=== PATIENT | female | born 1995 | race African-American/Black ===

== ENCOUNTER 2023-12-24 04:56 | Day surgery (SDC) | payer OTHER ==
[2023-12-21 08:40] VITALS: BMI 31.7
[2023-12-24] MEDS ORDERED: MIDAZOLAM HCL 2 MG/2 ML SINGLE DOSE VIAL ONE (13:19)
[2023-12-24] MEDS: LIDOCAINE HCL 1% PRESERVATIVE FREE - 30ML VIAL IJ ONE (13:27)
[2023-12-24] MEDS: BUPIVACAINE HCL/PF 0.25% (2.5MG/ML) 10 ML VIAL IJ ONE (13:27)
[2023-12-24] MEDS: DEXAMETHASONE SOD PHOSPHATE 10 MG/1 ML VIAL IVPUSH ONE (13:27)
[2023-12-24] MEDS: IOHEXOL 180 MG/1 ML ML IJ ONE (13:27)
[2023-12-24 14:34] VITALS: RESP 20
[2023-12-24 15:11] VITALS: BP 126/78; PULSE 70; TEMP 98
== END 2023-12-24 14:45 | disposition home or self-care (01) ==
LOC: JASU-SURG 04:56
PROVIDERS: ATTEND Physical Medicine & Rehabilitation
PROC: 3E0R3BZ Introduction of Anesthetic Agent into Spinal Canal, Percutaneous Approach (ICD-10-PCS; 2023-12-24)
PROC: 3E0R33Z Introduction of Anti-inflammatory into Spinal Canal, Percutaneous Approach (ICD-10-PCS; principal; 2023-12-24 12:30)
DX: M54.16 Radiculopathy, lumbar region (principal); M54.50 Low back pain, unspecified
CPT/HCPCS: 76000-TC-FY; 81025; J1100